=== PATIENT | female | born 1945 | race Caucasian/White ===

== ENCOUNTER 2023-09-11 12:01 | Outpatient (CLI) | payer MEDICARE, OTHER | END 2023-09-11 12:02 | disposition home or self-care (01) | LOC: CSHLAB 12:01 | PROVIDERS: ATTEND Surgery | DX: Z01.818 Encounter for other preprocedural examination (principal); C34.81 Malignant neoplasm of overlapping sites of right bronchus and lung | CPT/HCPCS: 93005; 93010 ==

== ENCOUNTER 2023-09-13 05:49 | Day surgery (SDC) | payer MEDICARE, OTHER ==
[2023-09-11 12:25] VITALS: BMI 22.8
[2023-09-13] MEDS ORDERED: CEFAZOLIN 2 GM VIAL ONE (06:22)
[2023-09-13] MEDS ORDERED: Bupivacaine PF 0.5% 30 ML VIAL ONE (06:22)
[2023-09-13] MEDS ORDERED: EPINEPHrine 1 MG/ML VIAL ONE (06:22)
[2023-09-13] MEDS ORDERED: fentaNYL 50 mcg/mL 1 mL Vial ONE (06:27)
[2023-09-13] MEDS ORDERED: PROPOFOL 20 ML ONE (06:27)
[2023-09-13] MEDS ORDERED: Ondansetron PF 4 MG/2 ML Vial ONE (06:32)
[2023-09-13] MEDS ORDERED: Lidocaine 1% PF 5 ML VIAL ONE (06:32)
[2023-09-13] MEDS ORDERED: Dexamethasone 4 mg/ml Vial ONE (06:32)
== END 2023-09-13 08:50 | disposition home or self-care (01) ==
LOC: CSHSDC 05:49
PROVIDERS: ATTEND Surgery
PROC: 0JH60WZ Insertion of Totally Implantable Vascular Access Device into Chest Subcutaneous Tissue and Fascia, Open Approach (ICD-10-PCS; principal; 2023-09-13)
DX: C34.91 Malignant neoplasm of unspecified part of right bronchus or lung (principal); C78.7 Secondary malignant neoplasm of liver and intrahepatic bile duct; C79.2 Secondary malignant neoplasm of skin; C79.70 Secondary malignant neoplasm of unspecified adrenal gland; C79.89 Secondary malignant neoplasm of other specified sites; I10 Essential (primary) hypertension; Z87.891 Personal history of nicotine dependence; Z79.899 Other long term (current) drug therapy
CPT/HCPCS: 36561; 71045; C1788; J0171; J0665; J1100; J1642; J2405; J2704; J3010